=== PATIENT | male | born 2000 | race Caucasian/White ===

== ENCOUNTER 2020-12-26 04:53 | Emergency (ER) | payer BC ==
[~2020-12-26] VITALS: Ht 177.8 cm; Wt 72.6 kg
[2020-12-26 04:56] VITALS: BP 116/73
--- NOTE | 2020-12-26 05:00 | NUR ---
TO BED VIA WHEEL CHAIR
[2020-12-26] MEDS ORDERED: FLUORESCEIN OPTH STRIP 1 MG OP ONE (05:05)
[2020-12-26] MEDS ORDERED: TETRACAINE HCL/PF 0.5% OPTH 4 ML BTL OP ONE (05:05)
--- NOTE | 2020-12-26 05:15 | NUR ---
20 YO M BIB FAMILY FOR CO OF EYE PAIN. PT STATES HE WORKS A [employer]. PT STATES 9/10 EYE PAIN. BILATERAL EYES REDDENED, ORBITAL AREA INFLAMMED. LIGHT SENSITIVE. NO OTHER S/S OF ACUTE DISTRESS HX: NONE AX: NONE RX: NONE
[2020-12-26] MEDS ORDERED: TOMOMETER 1 DEV DEV MC ONE (05:21)
[2020-12-26] MEDS ORDERED: ERYT5OIN51 OP (05:32)
--- NOTE | 2020-12-26 05:50 | NUR ---
Note [email or web address] in EDM - 12/26/20 at 0556 by ARMANDO 20 YO M BIB FAMILY FOR CO OF EYE PAIN. PT STATES HE WORKS A [employer]. PT STATES 12/26 EYE PAIN. BILATERAL EYES REDDENED, ORBITAL AREA INFLAMMED. LIGHT SENSITIVE. NO OTHER S/S OF ACUTE DISTRESS HX: NONE AX: NONE RX: NONE
[2020-12-26 05:55] VITALS: BP 116/73
--- NOTE | 2020-12-26 05:57 | NUR ---
Patient discharged with v/s stable. Written and verbal after care instructions given and explained. Patient alert, oriented and verbalized understanding of instructions. Ambulatory with steady gait. All questions addressed prior to discharge. ID band removed. Patient advised to follow up with PMD. Rx of ERYTHROMYCIN given. Patient educated on indication of medication including possible reaction and side effects. Opportunity to ask questions provided and answered.
== END 2020-12-26 05:57 | disposition home or self-care (01) ==
LOC: MED 04:53
DX: H16.8 Other keratitis (principal); Z79.899 Other long term (current) drug therapy
CPT/HCPCS: 99283